=== PATIENT | male | born 1995 | race American Indian/Alaskan Native ===

== ENCOUNTER 2022-04-30 19:56 | Emergency (ER) | payer OTHER ==
[~2022-04-30] VITALS: Ht 167.6 cm; Wt 81.6 kg
== END 2022-04-30 22:26 | disposition home or self-care (01) ==
LOC: ER 19:56
DX: L70.9 Acne, unspecified (principal); E87.5 Hyperkalemia

== ENCOUNTER → 2022-05-12 | Emergency (ER) | payer OTHER ==
[~2022-05-12] VITALS: Ht 175.3 cm; Wt 74.8 kg
[~2022-05-12] MED LIST: DUTASTERIDE0.5 MG PO; FLUOCINOLON118.28 M1 TP
== END | disposition left against medical advice (07) ==
LOC: ER 15:09
DX: Z53.21 Procedure and treatment not carried out due to patient leaving prior to being seen by health care provider (principal)

== ENCOUNTER 2023-02-12 13:27 | Outpatient (CLI) | payer OTHER | END 2023-02-12 13:28 | disposition home or self-care (01) | LOC: SONOGRAMA 13:27 | PROVIDERS: ATTEND Surgery | DX: I86.1 Scrotal varices (principal) ==

== ENCOUNTER 2023-05-26 07:08 | Emergency (ER) | payer OTHER ==
[~2023-05-26] VITALS: Ht 175.3 cm; Wt 79.4 kg
[2023-05-26] MEDS ORDERED: TRUVADA 100 MG1 EACH (07:23)
[2023-05-26] MEDS ORDERED: KETOROLAC TROMETHAMINE 30 MG VIAL IM STA (08:29)
[2023-05-26] MEDS ORDERED: CEFTRIAXONE SODIUM 1,000 MG VIAL IM STA (08:29)
== END 2023-05-26 09:00 | disposition home or self-care (01) ==
LOC: ER 07:09
DX: J03.90 Acute tonsillitis, unspecified (principal)

== ENCOUNTER 2023-06-16 13:01 | Emergency (ER) | payer OTHER ==
[~2023-06-16] VITALS: Ht 182.9 cm; Wt 72.6 kg
[~2023-06-16 13:01] MED LIST changes: +TRUVADA 100 MG1 EACH
== END 2023-06-16 18:08 | disposition home or self-care (01) ==
LOC: ER 13:01
DX: J02.0 Streptococcal pharyngitis (principal)